=== PATIENT | female | born 1950 | race Hispanic/Latino ===

== ENCOUNTER 2024-03-07 07:03 | Observation (INO) | payer MEDICARE, OTHER ==
[2024-03-07 08:49] LABS: #Basophils 0.05 10x3/uL (0.0-0.2); %Basophils 0.8 % (0.0-1.0); %Eosinophils 5.7 % (0.0-10.0); %Lymphocytes 21.1 % (21.0-51.0); %Monocytes 7.3 % (0.0-10.0); %Neutrophils 64.9 % (42.0-75.0); Hematocrit 35.4 % (36.0-47.0); Hemoglobin 11.3 g/dL (12.0-16.0); Mean Corpuscular HGB CONC 31.9 g/dL (32.0-36.0); Mean Corpuscular Hemoglobin 31.3 pg (27.0-31.0); Mean Corpuscular Volume 98.1 fL (78.0-98.0); Mean Platelet Volume 9.5 fL (7.4-10.4); Platelet Count 176 10x3/uL (130-400); RBC Distribution Width 15.6 % (11.5-14.5); Red Blood Cell (RBC) Count 3.61 mill/uL (4.20-5.40)
[2024-03-07 09:08] LABS: Potassium 6.4 mmol/L (3.5-5.1)
[2024-03-07 09:10] LABS: ALT (SGPT) 25 U/L (8-55); AST (SGOT) 29 U/L (5-34); Albumin 3.6 g/dL (3.4-4.8); Alkaline Phosphatase 191 U/L (40-110); Anion Gap 17 mmol/L (10-20); BUN (Urea Nitrogen) 60 mg/dL (9.8-20.1); Bilirubin, Total 0.5 mg/dL (0.2-1.2); Calc. Creatinine Clearance 0 mL/min (70-130); Calcium 9.5 mg/dL (7.8-10.44); Carbon Dioxide 27 mmol/L (23-31); Chloride 96 mmol/L (98-107); Estimated GFR 6; Globulin 3.6 g/dL (2.4-3.5); Glucose 88 mg/dL (83-110); Protein, Total 7.2 g/dL (5.8-8.1); Sodium 134 mmol/L (136-145)
[2024-03-07 09:13] LABS: Troponin I 0.036 ng/mL (< 0.028)
[2024-03-07 09:16] LABS: Actual Bicarbonate (HCO3v) 29.3 mEq/L (22-28); Base Excess 2.5 mEq/L (-2.0 to +3.0); Calcium, Ionized (venous) 1.11 mmol/L (1.16-1.32); Chloride (VBG) 95 mmol/L (98-106); Hematocrit-VBG 36 % (36.0-47.0); Hemoglobin (Hb) 12.2 g/dL (11.7-16.1); Sodium 135 mmol/L (133-146); pH (venous) 7.339 (7.32-7.43)
[2024-03-07 09:22] LABS: Potassium (VBG) 6.37 mmol/L (3.70-5.30)
[2024-03-07] MEDS ORDERED: Dextrose 10% in Water 250 ML ONE (10:10)
[2024-03-07] MEDS ORDERED: Insulin Regular, Human 100 UNIT/ML 10 ML VIAL ONE (10:11)
[2024-03-07] MEDS ORDERED: CALCIUM GLUC 1 GM/NS 50 ML IV Bag ONE (10:11)
[2024-03-07] MEDS ORDERED: Ondansetron ODT 4 MG TAB SL PRN (10:30)
[2024-03-07] MEDS ORDERED: Acetaminophen 325 MG TAB PO PRN ×2 (10:30→11:26)
[2024-03-07] MEDS ORDERED: Ondansetron PF 4 MG/2 ML Vial IVP PRN (10:30)
[2024-03-07] MEDS ORDERED: Senokot S 8.6-50 MG TAB PO PRN (11:26)
[2024-03-07] MEDS ORDERED: Glucagon 1 MG/ML KIT IM PRN (11:28)
[2024-03-07] MEDS ORDERED: Dextrose 50% Abboject 50 ML SYRINGE SLOW IVP PRN (11:28)
[2024-03-07] MEDS ORDERED: Dextrose 5% in Water 1,000 ML IV PRN (11:28)
[2024-03-07 12:27] VITALS: BMI 29.9
[2024-03-07] MEDS: Dextrose 50% Abboject 50 ML SYRINGE ONE (13:06)
[2024-03-07 13:14] LABS: Troponin I 0.029 ng/mL (< 0.028)
[2024-03-07] MEDS: LOKELMA 10 GM PACKET PO SCH (13:19)
[2024-03-07 13:51] LABS: Anion Gap 22 mmol/L (10-20); BUN (Urea Nitrogen) 61 mg/dL (9.8-20.1); Calc. Creatinine Clearance 8 mL/min (70-130); Carbon Dioxide 23 mmol/L (23-31); Chloride 98 mmol/L (98-107); Estimated GFR 6; Glucose 105 mg/dL (83-110); Phosphorus 6.7 mg/dL (2.3-4.7); Potassium 4.7 mmol/L (3.5-5.1); Sodium 138 mmol/L (136-145)
[2024-03-07 16:20] LABS: HBSAB Concentration Less than 8.00 mIU/mL; HBsAg Index 0.31 S/CO (0-0.99); Hep B Core Total Ab NONREACTIVE (NonReactive); Hep B Core Total Index 0.11 S/CO (0-0.79); Hep B Surf AB NONREACTIVE (NonReactive); Hep B Surf Ag NONREACTIVE S/CO (NonReactive); Hep C IgG Ab NONREACTIVE S/CO (NonReactive)
[2024-03-07] MEDS: Heparin 5,000 UNITS/ML VIAL SC SCH (17:51)
[2024-03-07 19:22] LABS: Troponin I 0.039 ng/mL (< 0.028)
[2024-03-07] MEDS: Simvastatin 10 MG TAB PO SCH (21:26)
[2024-03-08 04:47] LABS: #Basophils 0.04 10x3/uL (0.0-0.2); %Basophils 0.9 % (0.0-1.0); %Eosinophils 4.4 % (0.0-10.0); %Lymphocytes 29.4 % (21.0-51.0); %Monocytes 8.6 % (0.0-10.0); %Neutrophils 56.5 % (42.0-75.0); Hematocrit 32.8 % (36.0-47.0); Hemoglobin 10.4 g/dL (12.0-16.0); Mean Corpuscular HGB CONC 31.7 g/dL (32.0-36.0); Mean Corpuscular Hemoglobin 30.3 pg (27.0-31.0); Mean Corpuscular Volume 95.6 fL (78.0-98.0); Mean Platelet Volume 9.7 fL (7.4-10.4); Platelet Count 166 10x3/uL (130-400); RBC Distribution Width 15.9 % (11.5-14.5); Red Blood Cell (RBC) Count 3.43 mill/uL (4.20-5.40)
[2024-03-08 05:10] LABS: Anion Gap 17 mmol/L (10-20); BUN (Urea Nitrogen) 29 mg/dL (9.8-20.1); Calc. Creatinine Clearance 13 mL/min (70-130); Calcium 8.6 mg/dL (7.8-10.44); Carbon Dioxide 25 mmol/L (23-31); Chloride 101 mmol/L (98-107); Estimated GFR 11; Glucose 68 mg/dL (83-110); Phosphorus 5.9 mg/dL (2.3-4.7); Potassium 5.5 mmol/L (3.5-5.1); Sodium 137 mmol/L (136-145)
[2024-03-08] MEDS: Amlodipine 5 MG TAB PO SCH (08:17)
[2024-03-08] MEDS: Folic Acid/Vit B Comp W-C PO SCH (09:21)
[2024-03-08] MEDS: Gabapentin 300 MG CAP PO SCH (09:21)
[2024-03-08] MEDS: Calcium Acetate 667 MG CAP PO SCH (11:21)
[2024-03-08 15:29] VITALS: BP 147/68; TEMP 98
[2024-03-08 19:04] LABS: Anion Gap 17 mmol/L (10-20); BUN (Urea Nitrogen) 17 mg/dL (9.8-20.1); Calc. Creatinine Clearance 19 mL/min (70-130); Calcium 8.9 mg/dL (7.8-10.44); Carbon Dioxide 22 mmol/L (23-31); Chloride 102 mmol/L (98-107); Estimated GFR 17; Glucose 102 mg/dL (83-110); Potassium 4.4 mmol/L (3.5-5.1); Sodium 137 mmol/L (136-145)
== END 2024-03-09 05:35 | disposition home or self-care (01) ==
LOC: ERS 07:03 → 2NO 11:33
PROVIDERS: ADMIT Family Medicine; ATTEND Family Medicine
DX: I12.0 Hypertensive chronic kidney disease with stage 5 chronic kidney disease or end stage renal disease (principal); N18.6 End stage renal disease; D63.1 Anemia in chronic kidney disease; E11.22 Type 2 diabetes mellitus with diabetic chronic kidney disease; T82.898A Other specified complication of vascular prosthetic devices, implants and grafts, initial encounter; E87.5 Hyperkalemia; J18.9 Pneumonia, unspecified organism; R79.9 Abnormal finding of blood chemistry, unspecified; Z86.711 Personal history of pulmonary embolism; Z86.73 Personal history of transient ischemic attack (TIA), and cerebral infarction without residual deficits; Z79.899 Other long term (current) drug therapy
CPT/HCPCS: 36556; 71045; 80048 ×3; 80053; 82805; 82962 ×2; 83880; 84100 ×2; 84484 ×2; 85025 ×2; 86704; 86706; 86803; 87340; 93005; 93931; 94760; 96372 ×2; 96374; G0378 ×2; J0613; J1642; J1644 ×2; J1815; J7999; 36415; 36416; 90935; G0257

== ENCOUNTER 2024-04-01 08:20 | Inpatient (IN) | payer OTHER, MEDICARE ==
[2024-04-01] MEDS ORDERED: Iopamidol-370 76% 500 ML MDV (1 ML CHARGE) ONE (09:11)
[2024-04-01 10:28] LABS: #Basophils 0.03 10x3/uL (0.0-0.2); %Basophils 0.5 % (0.0-1.0); %Eosinophils 5.8 % (0.0-10.0); %Lymphocytes 25.9 % (21.0-51.0); %Monocytes 7.3 % (0.0-10.0); %Neutrophils 60.3 % (42.0-75.0); Hematocrit 32.3 % (36.0-47.0); Hemoglobin 10.6 g/dL (12.0-16.0); Mean Corpuscular HGB CONC 32.8 g/dL (32.0-36.0); Mean Corpuscular Hemoglobin 31.2 pg (27.0-31.0); Mean Platelet Volume 9.5 fL (7.4-10.4); Platelet Count 137 10x3/uL (130-400); RBC Distribution Width 15.2 % (11.5-14.5)
[2024-04-01 10:48] LABS: INR-International Normal Ratio 0.9; Prothrombin Time 12.1 sec (12.0-14.7)
[2024-04-01 10:57] LABS: ALT (SGPT) 32 U/L (8-55); AST (SGOT) 39 U/L (5-34); Albumin 3.6 g/dL (3.4-4.8); Alkaline Phosphatase 186 U/L (40-110); Anion Gap 23 mmol/L (10-20); BUN (Urea Nitrogen) 105 mg/dL (9.8-20.1); Bilirubin, Total 0.5 mg/dL (0.2-1.2); Calc. Creatinine Clearance 0 mL/min (70-130); Calcium 8.8 mg/dL (7.8-10.44); Carbon Dioxide 21 mmol/L (23-31); Chloride 100 mmol/L (98-107); Estimated GFR 4; Globulin 3.6 g/dL (2.4-3.5); Glucose 83 mg/dL (83-110); Magnesium 3.2 mg/dL (1.6-2.6); Potassium 6.8 mmol/L (3.5-5.1); Protein, Total 7.2 g/dL (5.8-8.1); Sodium 137 mmol/L (136-145)
[2024-04-01] MEDS ORDERED: Dextrose 10% in Water 250 ML ONE ×2 (11:52→14:12)
[2024-04-01] MEDS ORDERED: HumaLOG 300 UNITS/3 ML VIAL ONE (11:52)
[2024-04-01] MEDS ORDERED: Calcium Gluc 4.6 MEQ/10 ML (100 MG/ML) ONE (11:52)
[2024-04-01] MEDS ORDERED: Dextrose 50% Abboject 50 ML SYRINGE ONE (11:59)
[2024-04-01] MEDS ORDERED: Dextrose 5% in Water 1,000 ML IV PRN (12:44)
[2024-04-01] MEDS ORDERED: Senokot S 8.6-50 MG TAB PO PRN (12:44)
[2024-04-01] MEDS ORDERED: Acetaminophen 650 MG Suppository PR PRN (12:44)
[2024-04-01] MEDS ORDERED: Ondansetron PF 4 MG/2 ML Vial IVP PRN (12:44)
[2024-04-01] MEDS ORDERED: Insulin Lispro 100 UNIT/ML 10 ML VIAL SC PRN (12:44)
[2024-04-01] MEDS ORDERED: Ondansetron ODT 4 MG TAB PO PRN (12:44)
[2024-04-01] MEDS ORDERED: Glucagon 1 MG/ML KIT IM PRN (12:44)
[2024-04-01 13:31] LABS: Phosphorus 8.8 mg/dL (2.3-4.7)
[2024-04-01] MEDS ORDERED: hydrALAZINE 20 MG/ML VIAL ONE (13:34)
[2024-04-01] MEDS: hydrALAZINE 20 MG/ML VIAL SLOW IVP SCH (13:46)
[2024-04-01] MEDS ORDERED: Insulin Regular, Human 100 UNIT/ML 10 ML VIAL ONE (14:14)
[2024-04-01] MEDS: Dextrose 50% Abboject 50 ML SYRINGE SLOW IVP PRN (14:23)
[2024-04-01 16:58] LABS: Potassium 5.9 mmol/L (3.5-5.1)
[2024-04-01] MEDS ORDERED: Ipratropium/Albuterol 3 ML NEB NEB PRN (18:01)
[2024-04-01 18:22] VITALS: BMI 31.1
[2024-04-01] MEDS: Calcium Acetate 667 MG CAP PO SCH (18:23)
[2024-04-01] MEDS: LOKELMA 10 GM PACKET PO SCH (18:23)
[2024-04-01] MEDS: cefTRIAXone\\ROCEPHIN 1 GM in Sodium Chloride 0.9% 100 ML IVPB SCH (19:14)
[2024-04-01 20:20] LABS: Hematocrit 27.2 % (36.0-47.0); Hemoglobin 9.1 g/dL (12.0-16.0)
[2024-04-02] MEDS: Gabapentin 300 MG CAP PO SCH (00:50)
[2024-04-02] MEDS: Amlodipine 5 MG TAB PO SCH (00:51)
[2024-04-02] MEDS: Azithromycin 500 MG in Sodium Chloride 0.9% 250 ML 250 ML IVPB SCH (00:51)
[2024-04-02] MEDS: Heparin 5,000 UNITS/ML VIAL SC SCH (00:54)
[2024-04-02] MEDS: Acetaminophen 325 MG TAB PO PRN (02:30)
[2024-04-02 03:31] LABS: Potassium 4.1 mmol/L (3.5-5.1)
[2024-04-02 03:33] LABS: #Basophils 0.03 10x3/uL (0.0-0.2); %Basophils 0.7 % (0.0-1.0); %Eosinophils 3.2 % (0.0-10.0); %Lymphocytes 17.8 % (21.0-51.0); %Monocytes 7.8 % (0.0-10.0); %Neutrophils 70.3 % (42.0-75.0); Hematocrit 28.4 % (36.0-47.0); Hemoglobin 9.1 g/dL (12.0-16.0); Mean Corpuscular Hemoglobin 31.1 pg (27.0-31.0); Mean Corpuscular Volume 96.9 fL (78.0-98.0); Platelet Count 127 10x3/uL (130-400); RBC Distribution Width 15.3 % (11.5-14.5); Red Blood Cell (RBC) Count 2.93 mill/uL (4.20-5.40)
[2024-04-02 04:00] LABS: ALT (SGPT) 32 U/L (8-55); AST (SGOT) 41 U/L (5-34); Alkaline Phosphatase 155 U/L (40-110); Anion Gap 15 mmol/L (10-20); BUN (Urea Nitrogen) 19 mg/dL (9.8-20.1); Bilirubin, Total 0.5 mg/dL (0.2-1.2); Calc. Creatinine Clearance 20 mL/min (70-130); Calcium 8.6 mg/dL (7.8-10.44); Carbon Dioxide 23 mmol/L (23-31); Chloride 105 mmol/L (98-107); Estimated GFR 17; Globulin 3.1 g/dL (2.4-3.5); Glucose 86 mg/dL (83-110); Potassium 4.1 mmol/L (3.5-5.1); Protein, Total 6.1 g/dL (5.8-8.1); Sodium 139 mmol/L (136-145)
[2024-04-02] MEDS: Folic Acid/Vit B Comp W-C PO SCH (11:15)
[2024-04-02] MEDS: Piperacillin/Tazobactam 3.375 GM in Sodium Chloride 0.9% 100 ML IVPB SCH ×2 (18:17→21:55)
[2024-04-02] MEDS ORDERED: Piperacillin/Tazobactam 2.25 GM in Sodium Chloride 0.9% 100 ML IVPB SCH (22:00)
[2024-04-03 04:45] LABS: #Basophils 0.05 10x3/uL (0.0-0.2); %Basophils 1.1 % (0.0-1.0); %Eosinophils 7.4 % (0.0-10.0); %Lymphocytes 32.1 % (21.0-51.0); %Monocytes 9.2 % (0.0-10.0); Hematocrit 30.3 % (36.0-47.0); Hemoglobin 9.4 g/dL (12.0-16.0); Mean Corpuscular Hemoglobin 31.3 pg (27.0-31.0); Mean Platelet Volume 10.8 fL (7.4-10.4); Platelet Count 146 10x3/uL (130-400); RBC Distribution Width 15.3 % (11.5-14.5)
[2024-04-03 05:20] LABS: Anion Gap 18 mmol/L (10-20); BUN (Urea Nitrogen) 38 mg/dL (9.8-20.1); Calc. Creatinine Clearance 11 mL/min (70-130); Calcium 8.4 mg/dL (7.8-10.44); Carbon Dioxide 22 mmol/L (23-31); Chloride 105 mmol/L (98-107); Estimated GFR 9; Glucose 69 mg/dL (83-110); Potassium 5.8 mmol/L (3.5-5.1); Sodium 139 mmol/L (136-145)
[2024-04-03] MEDS: CALCIUM GLUC 1 GM/NS 50 ML 1 GM in Premix 1 BAG IVPB SCH (08:29)
[2024-04-03] MEDS: Dextrose 50% Abboject 50 ML SYRINGE SLOW IVP SCH (08:29)
[2024-04-03] MEDS: Insulin Regular, Human 100 UNIT/ML 10 ML VIAL IVP SCH (08:29)
[2024-04-03] MEDS: Calcium Gluc 4.6 MEQ/10 ML (100 MG/ML) SLOW IVP ONE (08:30)
[2024-04-03 12:30] VITALS: TEMP 97.9
[2024-04-03] MEDS ORDERED: Bupivacaine PF 0.5% 30 ML VIAL ONE (12:31)
[2024-04-03] MEDS ORDERED: EPINEPHrine 1 MG/ML VIAL ONE (12:31)
[2024-04-03] MEDS ORDERED: Heparin 10,000 UNITS/ 10 ML VIAL ONE (12:31)
[2024-04-03] MEDS ORDERED: Bupivacaine 0.25% HCL 30 ML VIAL ONE (12:32)
[2024-04-03] MEDS ORDERED: Sodium Chloride 0.9% 100 ML ONE (13:41)
[2024-04-03] MEDS ORDERED: Piperacillin/Tazobactam 3.375 GM VIAL ONE (13:41)
[2024-04-03] MEDS ORDERED: PROPOFOL 20 ML ONE (13:47)
[2024-04-03 14:01] LABS: Potassium 4.3 mmol/L (3.5-5.1)
[2024-04-03] MEDS ORDERED: Lidocaine 2% PF 5 ML VIAL ONE (14:10)
[2024-04-03] MEDS ORDERED: Ondansetron PF 4 MG/2 ML Vial ONE (14:10)
[2024-04-03] MEDS ORDERED: Dexamethasone 4 mg/ml Vial ONE (14:10)
[2024-04-03] MEDS ORDERED: ePHEDrine Sulfate 50 MG/10 ML VIAL ONE (14:31)
[2024-04-03] MEDS ORDERED: fentaNYL 50 mcg/mL 1 mL Vial ONE (14:50)
[2024-04-03] MEDS: hydrALAZINE 20 MG/ML VIAL SLOW IVP PRN (17:45)
[2024-04-03] MEDS: Insulin Lispro 100 UNIT/ML 10 ML VIAL SC PRN (21:10)
[2024-04-04 00:41] VITALS: BP 140/63
== END 2024-04-04 02:40 | disposition short-term general hospital (02) | DRG 314 ==
LOC: ERS 08:20 → ERHOLD 11:42 → 2NO 17:40 → OBSVTOIN 04-02 12:56
PROVIDERS: ADMIT Family Medicine; ATTEND Hospitalist
PROC: 3E033XZ Introduction of Vasopressor into Peripheral Vein, Percutaneous Approach (ICD-10-PCS; principal; 2024-04-03)
DX: T82.898A Other specified complication of vascular prosthetic devices, implants and grafts, initial encounter (principal); J18.9 Pneumonia, unspecified organism; N18.6 End stage renal disease; I13.2 Hypertensive heart and chronic kidney disease with heart failure and with stage 5 chronic kidney disease, or end stage renal disease; I50.32 Chronic diastolic (congestive) heart failure; E78.5 Hyperlipidemia, unspecified; E87.5 Hyperkalemia; D63.1 Anemia in chronic kidney disease; E11.22 Type 2 diabetes mellitus with diabetic chronic kidney disease; I25.2 Old myocardial infarction; Z99.2 Dependence on renal dialysis; Z79.899 Other long term (current) drug therapy; Z98.890 Other specified postprocedural states; Z53.9 Procedure and treatment not carried out, unspecified reason
CPT/HCPCS: 36415; 36416; 36556; 71045; 74177; 76770; 80048; 80053; 83735; 83880; 84100; 84145; 85025; 85610; 85730; 86141; 90935; 93005; 94760; 96372; 96374; 96375; 96376; C1752; G0257; G0378; J0171; J0360; J0456; J0612; J0665; J0696; J1100; J1644; J1815; J2001; J2405; J2543; J2704; J3010; J7050; J7999; Q9967

== ENCOUNTER 2024-06-19 12:04 | Emergency (ER) | payer MEDICARE, OTHER ==
[2024-06-19] MEDS ORDERED: Lidocaine Viscous Sol 2% 15 ml UD Cup ONE (13:14)
[2024-06-19] MEDS ORDERED: Aspirin Chewable 81 MG TAB ONE (13:14)
[2024-06-19] MEDS ORDERED: Milk Of Magnesia 30 ML UDCUP ONE (13:14)
[2024-06-19 14:22] LABS: #Basophils 0.06 10x3/uL (0.0-0.2); %Basophils 1.1 % (0.0-1.0); %Eosinophils 1.9 % (0.0-10.0); %Lymphocytes 29.9 % (21.0-51.0); %Monocytes 8.5 % (0.0-10.0); %Neutrophils 58.4 % (42.0-75.0); Hematocrit 35.1 % (36.0-47.0); Hemoglobin 11.2 g/dL (12.0-16.0); Mean Corpuscular HGB CONC 31.9 g/dL (32.0-36.0); Mean Corpuscular Volume 97.2 fL (78.0-98.0); Mean Platelet Volume 9.9 fL (7.4-10.4); Platelet Count 161 10x3/uL (130-400); RBC Distribution Width 15.2 % (11.5-14.5); Red Blood Cell (RBC) Count 3.61 mill/uL (4.20-5.40)
[2024-06-19 14:39] LABS: ALT (SGPT) 15 U/L (8-55); AST (SGOT) 24 U/L (5-34); Albumin 3.7 g/dL (3.4-4.8); Alkaline Phosphatase 108 U/L (40-110); Anion Gap 18 mmol/L (10-20); BUN (Urea Nitrogen) 24 mg/dL (9.8-20.1); Bilirubin, Total 0.4 mg/dL (0.2-1.2); Calc. Creatinine Clearance 0 mL/min (70-130); Calcium 11.3 mg/dL (7.8-10.44); Carbon Dioxide 27 mmol/L (23-31); Chloride 97 mmol/L (98-107); Estimated GFR 7; Globulin 2.8 g/dL (2.4-3.5); Glucose 97 mg/dL (83-110); Potassium 3.7 mmol/L (3.5-5.1); Protein, Total 6.5 g/dL (5.8-8.1); Sodium 138 mmol/L (136-145)
[2024-06-19 14:45] LABS: Troponin I 0.054 ng/mL (< 0.028)
[2024-06-19 16:30] LABS: Troponin I 0.054 ng/mL (< 0.028)
== END 2024-06-19 16:58 | disposition home or self-care (01) ==
LOC: ERS 12:04
DX: K29.00 Acute gastritis without bleeding (principal); E11.22 Type 2 diabetes mellitus with diabetic chronic kidney disease; I12.0 Hypertensive chronic kidney disease with stage 5 chronic kidney disease or end stage renal disease; N18.6 End stage renal disease; Z55.0 Illiteracy and low-level literacy; Z79.899 Other long term (current) drug therapy; Z75.8 Other problems related to medical facilities and other health care
CPT/HCPCS: 36415; 36416; 71045; 80053; 83880; 84484; 85025; 93005

== ENCOUNTER 2025-02-03 15:09 | Inpatient (IN) | payer OTHER, MEDICAID ==
[2025-02-03] MEDS ORDERED: cefTRIAXone (ROCEPHIN) 2 GM VIAL ONE (16:11)
[2025-02-03 16:16] LABS: #Basophils Less than 0.03 10x3/uL (0.0-0.2); #Eosinophils Less than 0.03 10x3/uL (0.0-0.7); #Monocytes 0.79 10x3/uL (0.11-0.59); #Neutrophils 10.41 10x3/uL (1.40-6.50); %Basophils 0.2 % (0.0-1.0); %Eosinophils 0.1 % (0.0-10.0); %Lymphocytes 6.1 % (21.0-51.0); %Monocytes 6.6 % (0.0-10.0); %Neutrophils 86.4 % (42.0-75.0); Hematocrit 22.9 % (36.0-47.0); Hemoglobin 7.5 g/dL (12.0-16.0); Mean Corpuscular Hemoglobin 29.6 pg (27.0-31.0); Mean Corpuscular Volume 90.5 fL (78.0-98.0); Platelet Count 135 10x3/uL (130-400); Red Blood Cell (RBC) Count 2.53 mill/uL (4.20-5.40); White Blood Cell (WBC) Count 12.04 10x3/uL (4.8-10.8)
[2025-02-03 16:33] LABS: ALT (SGPT) 11 U/L (Less than 34); AST (SGOT) 23 U/L (11-34); Albumin 3.2 g/dL (3.1-4.5); Alkaline Phosphatase 167 U/L (40-110); Anion Gap 19 mmol/L (10-20); BUN (Urea Nitrogen) 37 mg/dL (9.8-20.1); Bilirubin, Total 0.4 mg/dL (0.3-1.2); Calc. Creatinine Clearance 0 mL/min (70-130); Calcium 8.5 mg/dL (7.8-10.44); Carbon Dioxide 29 mmol/L (23-31); Chloride 93 mmol/L (98-107); Globulin 3.2 g/dL (2.4-3.5); Glucose 82 mg/dL (83-110); Potassium 5.4 mmol/L (3.5-5.1); Sodium 136 mmol/L (136-145)
[2025-02-03 16:36] LABS: Troponin I 0.138 ng/mL (< 0.028)
[2025-02-03] MEDS ORDERED: Senokot S 8.6-50 MG TAB PO PRN (18:09)
[2025-02-03] MEDS ORDERED: Acetaminophen 325 MG TAB PO PRN (18:09)
[2025-02-03] MEDS ORDERED: Melatonin 3 MG TAB PO PRN (18:09)
[2025-02-03] MEDS ORDERED: Dextrose 50% Abboject 50 ML SYRINGE SLOW IVP PRN (18:12)
[2025-02-03] MEDS ORDERED: Glucagon 1 MG/ML KIT IM PRN (18:12)
[2025-02-03 18:31] LABS: HBSAB Concentration Less than 8.00 mIU/mL; Hep B Core Total Ab NONREACTIVE (NonReactive); Hep B Core Total Index 0.08 S/CO (0-0.79); Hep B Surf Ag NONREACTIVE S/CO (NonReactive); Hep C IgG Ab NONREACTIVE S/CO (NonReactive); Hep C Index 0.09 S/CO (0-0.79)
[2025-02-03] MEDS: hydrALAZINE 20 MG/ML VIAL SLOW IVP SCH (20:27)
[2025-02-03 23:22] VITALS: BMI 31.7
[2025-02-04] MEDS: Vancomycin HCl 1.25 GM in Sodium Chloride 0.9% 250 ML 250 ML IVPB SCH (00:02)
[2025-02-04 01:59] LABS: Troponin I 0.119 ng/mL (< 0.028)
[2025-02-04] MEDS: Metoprolol Tartrate 5 MG (5 mL) VIAL IVP SCH (02:22)
[2025-02-04] MEDS: Diltiazem HCl/D5W 125 MG in Premix 1 BAG IVPB SCH ×2 (02:54→04:30)
[2025-02-04 03:02] LABS: #Basophils Less than 0.03 10x3/uL (0.0-0.2); #Eosinophils 0.06 10x3/uL (0.0-0.7); #Monocytes 0.31 10x3/uL (0.11-0.59); #Neutrophils 7.41 10x3/uL (1.40-6.50); %Basophils 0.1 % (0.0-1.0); %Eosinophils 0.7 % (0.0-10.0); %Lymphocytes 7.0 % (21.0-51.0); %Monocytes 3.7 % (0.0-10.0); %Neutrophils 87.8 % (42.0-75.0); Hematocrit 22.3 % (36.0-47.0); Hemoglobin 7.3 g/dL (12.0-16.0); Mean Corpuscular Hemoglobin 29.7 pg (27.0-31.0); Mean Corpuscular Volume 90.7 fL (78.0-98.0); Platelet Count 103 10x3/uL (130-400); Red Blood Cell (RBC) Count 2.46 mill/uL (4.20-5.40); White Blood Cell (WBC) Count 8.44 10x3/uL (4.8-10.8)
[2025-02-04 03:05] LABS: ALT (SGPT) 10 U/L (Less than 34); AST (SGOT) 21 U/L (11-34); Albumin 2.8 g/dL (3.1-4.5); Alkaline Phosphatase 142 U/L (40-110); Anion Gap 16 mmol/L (10-20); BUN (Urea Nitrogen) 17 mg/dL (9.8-20.1); Bilirubin, Total 0.5 mg/dL (0.3-1.2); Calc. Creatinine Clearance 14 mL/min (70-130); Calcium 8.4 mg/dL (7.8-10.44); Carbon Dioxide 26 mmol/L (23-31); Chloride 100 mmol/L (98-107); Globulin 3.1 g/dL (2.4-3.5); Glucose 117 mg/dL (83-110); Magnesium 1.8 mg/dL (1.6-2.6); Potassium 4.1 mmol/L (3.5-5.1); Sodium 138 mmol/L (136-145)
[2025-02-04 03:59] LABS: Troponin I 0.097 ng/mL (< 0.028)
[2025-02-04] MEDS: dilTIAZem 25 MG/5 ML VIAL SLOW IVP SCH (05:06)
[2025-02-04] MEDS: EPOETIN ALFA-EPBX (ESRD) 10,000 UNITS/ML VIAL SC SCH (12:32)
[2025-02-04] MEDS: dilTIAZem 30 MG TAB PO SCH (16:39)
[2025-02-05 08:51] LABS: #Basophils Less than 0.03 10x3/uL (0.0-0.2); #Eosinophils 0.16 10x3/uL (0.0-0.7); #Monocytes 0.38 10x3/uL (0.11-0.59); #Neutrophils 4.73 10x3/uL (1.40-6.50); %Basophils 0.3 % (0.0-1.0); %Eosinophils 2.7 % (0.0-10.0); %Lymphocytes 11.4 % (21.0-51.0); %Monocytes 6.3 % (0.0-10.0); %Neutrophils 79.0 % (42.0-75.0); Hematocrit 22.0 % (36.0-47.0); Hemoglobin 7.3 g/dL (12.0-16.0); Mean Corpuscular Hemoglobin 30.3 pg (27.0-31.0); Mean Corpuscular Volume 91.3 fL (78.0-98.0); Platelet Count 126 10x3/uL (130-400); Red Blood Cell (RBC) Count 2.41 mill/uL (4.20-5.40); White Blood Cell (WBC) Count 5.99 10x3/uL (4.8-10.8)
[2025-02-05 09:03] LABS: Vancomycin, Trough 23.3 ug/mL
[2025-02-05 09:07] LABS: Anion Gap 17 mmol/L (10-20); BUN (Urea Nitrogen) 34 mg/dL (9.8-20.1); Calc. Creatinine Clearance 9 mL/min (70-130); Calcium 8.6 mg/dL (7.8-10.44); Carbon Dioxide 26 mmol/L (23-31); Chloride 98 mmol/L (98-107); Glucose 104 mg/dL (83-110); Potassium 4.6 mmol/L (3.5-5.1); Sodium 136 mmol/L (136-145)
[2025-02-05] MEDS: Metoprolol Tartrate 5 MG (5 mL) VIAL IVP SCH (15:31)
[2025-02-06 04:39] LABS: #Basophils 0.03 10x3/uL (0.0-0.2); #Eosinophils 0.21 10x3/uL (0.0-0.7); #Monocytes 0.48 10x3/uL (0.11-0.59); #Neutrophils 3.66 10x3/uL (1.40-6.50); %Basophils 0.6 % (0.0-1.0); %Eosinophils 3.9 % (0.0-10.0); %Lymphocytes 18.2 % (21.0-51.0); %Monocytes 8.9 % (0.0-10.0); %Neutrophils 68.0 % (42.0-75.0); Hematocrit 26.4 % (36.0-47.0); Hemoglobin 8.7 g/dL (12.0-16.0); Mean Corpuscular Hemoglobin 29.1 pg (27.0-31.0); Mean Corpuscular Volume 88.3 fL (78.0-98.0); Platelet Count 126 10x3/uL (130-400); Red Blood Cell (RBC) Count 2.99 mill/uL (4.20-5.40); White Blood Cell (WBC) Count 5.38 10x3/uL (4.8-10.8)
[2025-02-06 05:50] LABS: Albumin 2.5 g/dL (3.1-4.5); Anion Gap 14 mmol/L (10-20); BUN (Urea Nitrogen) 25 mg/dL (9.8-20.1); BUN/Creatinine Ratio 6.23; Calc. Creatinine Clearance 11 mL/min (70-130); Calcium 8.2 mg/dL (7.8-10.44); Carbon Dioxide 24 mmol/L (23-31); Chloride 100 mmol/L (98-107); Glucose 75 mg/dL (83-110); Potassium 4.0 mmol/L (3.5-5.1); Sodium 134 mmol/L (136-145)
[2025-02-06] MEDS: Losartan 25 MG TAB PO SCH (10:14)
[2025-02-06] MEDS: Metoprolol Tartrate 5 MG (5 mL) VIAL IVP PRN (18:42)
[2025-02-07] MEDS: Diltiazem HCl/D5W 125 MG in Premix 1 BAG IVPB SCH (02:21)
[2025-02-07 05:16] LABS: #Basophils 0.04 10x3/uL (0.0-0.2); #Eosinophils 0.17 10x3/uL (0.0-0.7); #Monocytes 0.63 10x3/uL (0.11-0.59); #Neutrophils 2.97 10x3/uL (1.40-6.50); %Basophils 0.8 % (0.0-1.0); %Eosinophils 3.3 % (0.0-10.0); %Lymphocytes 25.6 % (21.0-51.0); %Monocytes 12.2 % (0.0-10.0); %Neutrophils 57.7 % (42.0-75.0); Hematocrit 32.6 % (36.0-47.0); Hemoglobin 10.5 g/dL (12.0-16.0); Mean Corpuscular Hemoglobin 29.2 pg (27.0-31.0); Mean Corpuscular Volume 90.6 fL (78.0-98.0); Platelet Count 146 10x3/uL (130-400); Red Blood Cell (RBC) Count 3.60 mill/uL (4.20-5.40); White Blood Cell (WBC) Count 5.15 10x3/uL (4.8-10.8)
[2025-02-07 05:49] LABS: Anion Gap 18 mmol/L (10-20); BUN (Urea Nitrogen) 18 mg/dL (9.8-20.1); Calc. Creatinine Clearance 14 mL/min (70-130); Calcium 8.7 mg/dL (7.8-10.44); Carbon Dioxide 23 mmol/L (23-31); Chloride 101 mmol/L (98-107); Glucose 87 mg/dL (83-110); Potassium 4.0 mmol/L (3.5-5.1); Sodium 138 mmol/L (136-145)
[2025-02-07] MEDS: Losartan 25 MG TAB PO SCH (09:02)
[2025-02-08 05:32] LABS: #Basophils Less than 0.03 10x3/uL (0.0-0.2); #Eosinophils 0.20 10x3/uL (0.0-0.7); #Monocytes 0.51 10x3/uL (0.11-0.59); #Neutrophils 2.10 10x3/uL (1.40-6.50); %Basophils 0.5 % (0.0-1.0); %Eosinophils 5.0 % (0.0-10.0); %Lymphocytes 28.9 % (21.0-51.0); %Monocytes 12.7 % (0.0-10.0); %Neutrophils 52.4 % (42.0-75.0); Hematocrit 28.3 % (36.0-47.0); Hemoglobin 9.1 g/dL (12.0-16.0); Mean Corpuscular Hemoglobin 29.3 pg (27.0-31.0); Mean Corpuscular Volume 91.0 fL (78.0-98.0); Platelet Count 147 10x3/uL (130-400); Red Blood Cell (RBC) Count 3.11 mill/uL (4.20-5.40); White Blood Cell (WBC) Count 4.01 10x3/uL (4.8-10.8)
[2025-02-08 06:30] LABS: Anion Gap 15 mmol/L (10-20); BUN (Urea Nitrogen) 33 mg/dL (9.8-20.1); Calc. Creatinine Clearance 8 mL/min (70-130); Calcium 8.3 mg/dL (7.8-10.44); Carbon Dioxide 23 mmol/L (23-31); Chloride 104 mmol/L (98-107); Glucose 76 mg/dL (83-110); Potassium 4.0 mmol/L (3.5-5.1); Sodium 138 mmol/L (136-145)
[2025-02-08] MEDS: Ondansetron PF 4 MG/2 ML Vial IVP PRN (09:52)
[2025-02-09 16:41] VITALS: BP 115/57; TEMP 97.9
== END 2025-02-09 16:15 | disposition home or self-care (01) | DRG 871 ==
LOC: ERS 15:09 → 2NO 18:24
PROVIDERS: ADMIT Internal Medicine; ATTEND Internal Medicine
PROC: 3E03329 Introduction of Other Anti-infective into Peripheral Vein, Percutaneous Approach (ICD-10-PCS; principal; 2025-02-03)
PROC: 30233N1 Transfusion of Nonautologous Red Blood Cells into Peripheral Vein, Percutaneous Approach (ICD-10-PCS; 2025-02-05)
DX: A41.9 Sepsis, unspecified organism (principal); G93.41 Metabolic encephalopathy; J18.9 Pneumonia, unspecified organism; N18.6 End stage renal disease; I10 Essential (primary) hypertension; E11.9 Type 2 diabetes mellitus without complications; R07.9 Chest pain, unspecified; I16.0 Hypertensive urgency; E87.5 Hyperkalemia; D64.9 Anemia, unspecified; I50.9 Heart failure, unspecified; I48.0 Paroxysmal atrial fibrillation; R53.81 Other malaise; Z99.2 Dependence on renal dialysis; Z98.890 Other specified postprocedural states; Z79.899 Other long term (current) drug therapy
CPT/HCPCS: 36415; 36416; 36430; 71045; 80048; 80053; 80069; 80202; 83605; 83735; 83880; 84100; 84145; 84443; 84484; 85025; 86704; 86706; 86803; 86850; 86900; 86901; 87040; 87081; 87340; 87633; 93005; 93010; 93306; 96365; J0360; J0692; J0696; J2405; J3370; J7030; J7050; P9016; Q5105